=== PATIENT | male | born 1985 | race African-American/Black ===

== ENCOUNTER 2023-03-14 08:47 | Emergency (ER) | payer SELFPAY ==
[2023-03-14] MEDS ORDERED: Ketorolac Tromethamine 30 MG/ML VIAL ONE (08:59)
== END 2023-03-14 09:25 | disposition home or self-care (01) ==
LOC: ERS 08:47
DX: K08.89 Other specified disorders of teeth and supporting structures (principal)
CPT/HCPCS: 96372; 99282; J1885